=== PATIENT | female | born 1990 | race Caucasian/White ===

== ENCOUNTER → 2018-06-26 | Outpatient (CLI) | payer OTHER ==
[2018-06-26 17:03] LABS: BASO % 0.6 %; BASO ABS # 0.04 K/uL (0-0.2); EOS % 1.4 %; HEMATOCRIT 38.8 % (37-47); HEMOGLOBIN 13.3 g/dL (12.0-16.0); IG# 0.01 K/uL (0.00-0.02); LYMPH % 34.6 %; MEAN CELL VOLUME 85.5 fL (80-100); MEAN CORPUSCULAR HEMOGLOBIN 29.3 pg (25-34); MEAN CORPUSCULAR HGB CONC 34.3 g/dl (32-36); MEAN PLATELET VOLUME 10.5 fL (7.4-10.4); MONO % 6.5 %; MONO ABS # 0.47 K/uL (0.11-0.59); NEUT % 56.8 %; NEUT ABS # 4.11 K/uL (1.4-6.5); PLATELET COUNT 244 K/uL (130-400); RED CELL DISTRIBUTION WIDTH CV 13.6 % (11.5-14.5); RED CELL DISTRIBUTION WIDTH SD 42.4 fL (36.4-46.3); WHITE BLOOD COUNT 7.23 K/uL (4.8-10.8)
[2018-06-26 17:46] LABS: BLOOD UREA NITROGEN 7 mg/dl (7-18); CALCIUM 9.2 mg/dl (8.5-10.1); CARBON DIOXIDE 25 mmol/L (21-32); CHOLESTEROL 152 mg/dl (0-200); CREATININE 0.63 mg/dl (0.60-1.20); GLUCOSE 88 mg/dl (70-99); LDL CHOLESTEROL CALCULATED 83 mg/dl; SODIUM 137 mmol/L (136-145)
== END | disposition home or self-care (01) ==
LOC: C.LABBC 14:13
PROVIDERS: ATTEND Nurse Practitioner Adult Health
DX: Z00.00 Encounter for general adult medical examination without abnormal findings (principal); Z13.29 Encounter for screening for other suspected endocrine disorder; R25.1 Tremor, unspecified; Z13.0 Encounter for screening for diseases of the blood and blood-forming organs and certain disorders involving the immune mechanism

== ENCOUNTER → 2018-06-27 | Outpatient (CLI) | payer OTHER ==
--- NOTE | 2018-06-27 14:17 | DIAGNOSTIC IMAGING REPORT ---
ABDOMEN FOR HERNIA HISTORY: 27 years-old Female HERNIA acute abdominal wall hernia with associated acute periumbilical abdominal wall pain COMPARISON: None available TECHNIQUE: Multiple real-time sonographic images of the periumbilical tissues were obtained assessing grayscale appearance and color flow FINDINGS: There is a small nonmobile, nonreducible fat-containing periumbilical hernia with diastases measuring approximately 1.2 cm. No bowel extension into the hernia identified. IMPRESSION: Small nonreducible fat filled periumbilical hernia. The above report was generated using voice recognition software. It may contain grammatical, syntax or spelling errors. Electronically signed by: Nelson Guevara M.D. 06/27/2018 2:15 PM Dictated Date/Time: 06/27/2018 2:14 PM
== END | disposition home or self-care (01) ==
LOC: C.ULTRBC 13:52
PROVIDERS: ATTEND Nurse Practitioner Adult Health
DX: K42.9 Umbilical hernia without obstruction or gangrene (principal)